=== PATIENT | female | born 1970 | race Caucasian/White ===

== ENCOUNTER 2022-10-25 07:32 | Emergency (ER) | payer BC, OTHER ==
[~2022-10-25] VITALS: Ht 162.6 cm; Wt 69.7 kg
[2022-10-25] MEDS ORDERED: fentaNYL INJ 100 MCG/2 ML AMP ONE (07:55)
[2022-10-25] MEDS ORDERED: KETOROLAC 30 MG/ML VIAL ONE (07:55)
[2022-10-25] MEDS ORDERED: KETOROLAC 30 MG/ML VIAL IVP STA (07:56)
[2022-10-25] MEDS ORDERED: ONDANSETRON 4 MG/2 ML (SDV) Z0FRAN IVP STA (07:56)
[2022-10-25] MEDS ORDERED: NS IV 1000 ML 1,000 ML IV STA (07:56)
[2022-10-25] MEDS ORDERED: ONDANSETRON 4 MG/2 ML (SDV) Z0FRAN ONE (07:56)
[2022-10-25] MEDS ORDERED: fentaNYL INJ 100 MCG/2 ML AMP IVP STA (07:56)
--- NOTE | 2022-10-25 08:04 | ED Abdominal Pain ---
General Chief Complaint: - Reproductive Stated Complaint: BACK PAIN Source of Information: Patient History of Present Illness Date Seen by Provider: Oct 25, 2022 Time Seen by Provider: 07:40 Initial Comments 51-year-old female presenting with complaints of right low back pain that started yesterday. She states that she thought maybe she had just pulled something in her back because she had lifted some cases of water. However overnight she had to get up to urinate several times and then around 5 this morning she got up and took her morning vitamins and shake. She states she was doing her morning chores and and had a bowel movement this morning. Then felt like she needed to go the bathroom again and when she went to the bathroom she had a small bowel movement and then had sudden severe pain wrapping around her right side. She did have vomiting with the pain. She had to lay down on the floor and called her using her watch to have him come help her and bring her to the emergency department. She denies having history of kidney stones but had looked online and thought that it might be a kidney stone. She states that she has had a hysterectomy and 2 C-sections but no other abdominal surgeries. She denies any pain or burning with urination. She had no fever, chills, cough, chest pain, shortness of breath. Timing/Duration: 12-24 Hours Severity/Quality: Severe (Initially was more mild but became severe this morning) Location: Flank (right) Radiation: Flank (right) Activities at Onset: None Modifying Factors: Worsens With Defecating, Worsens With Urinating Associated Symptoms: Back Pain (Right low back pain that started yesterday after lifting a case of water); No Chest Pain, No Diaphoresis, No Fever/Chills, No Fatigue, No Headache, No Heartburn; Nausea/Vomiting (With the pain this morning); No Rash, No Shortness of Air, No Swelling/Mass in Abdomen, No Syncope, No Weakness Allergies and Home Medications Allergies Coded Allergies: No Known Drug Allergies (Unverified , 10/25/22) Patient Home Medication List Home Medication List Reviewed: Yes Hydrocodone/Acetaminophen (Hydrocodone-Acetamin 5-325 mg) 5 Mg-325 Mg Tablet, 1 TAB PO Q6H PRN for PAIN-SEVERE (8-10) Prescribed by: MATTHEW NOYOLA on 10/25/22 0929 Ondansetron (Ondansetron Odt) 4 Mg Tab.rapdis, 4 MG PO Q6H PRN for NAUSEA/VOMITING Prescribed by: MATTHEW MORRISRT on 10/25/2228 Tamsulosin HCl (Flomax) 0.4 Mg Cap, 0.4 MG PO DAILY Prescribed by: MATTHEW Downs ENYART on 10/25/2228 Review of Systems Review of Systems Constitutional: No chills, No fever EENTM: No Symptoms Reported Respiratory: No Symptoms Reported Cardiovascular: No Symptoms Reported Gastrointestinal: See HPI Genitourinary: See HPI Musculoskeletal: see HPI Skin: no symptoms reported Psychiatric/Neurological: No Symptoms Reported Endocrine: No Symptoms Reported Past Jjezhdj-Kfonss-Ritdbt Hx Patient Social History Tobacco Use?: No Past Medical History Surgery/Hospitalization HX: Hysterectomy, x2 Surgeries: Yes Physical Exam Vital Signs Vital Signs - First Documented 10/25/22 07:45 Temp 36.1 Pulse 72 Resp 18 B/P (MAP) 109/77 (88) Pulse Ox 97 O2 Delivery Room Air Capillary Refill : Height/Weight/BMI Height: '" Weight: lbs. oz. kg; BMI Method: General Appearance: WD/WN, moderate distress (Patient is crying and holding her right side saying that it hurts) HEENT: PERRL/EOMI, pharynx normal Neck: non-tender, full range of motion, supple, normal inspection Respiratory: chest non-tender, lungs clear, normal breath sounds, no respiratory distress, no accessory muscle use Cardiovascular: normal peripheral pulses, regular rate, rhythm Gastrointestinal: normal bowel sounds, non tender, soft, no pulsatile mass Rectal: deferred Extremities: normal range of motion, non-tender, normal capillary refill Neurologic/Psychiatric: alert, oriented x 3 Skin: normal color, warm/dry Progress/Results/Core Measures Results/Orders Lab Results Laboratory Tests Test 10/25/22 07:45 10/25/22 08:05 Range/Units Urine Color YELLOW Urine Clarity CLEAR Urine pH 7.0 5-9 Urine Specific Sharon 1.020 1.016-1.022 Urine Protein NEGATIVE NEGATIVE Urine Glucose (UA) NEGATIVE NEGATIVE Urine Ketones 1+ H NEGATIVE Urine Nitrite NEGATIVE NEGATIVE Urine Bilirubin NEGATIVE NEGATIVE Urine Urobilinogen 0.2 < = 1.0 MG/DL Urine Leukocyte Esterase NEGATIVE NEGATIVE Urine RBC (Auto) 1+ H NEGATIVE Urine RBC 10-25 H /HPF Urine WBC NONE /HPF Urine Squamous Epithelial Cells 2-5 /HPF Urine Crystals NONE /LPF Urine Bacteria TRACE /HPF Urine Casts NONE /LPF Urine Mucus SMALL H /LPF Urine Culture Indicated NO White Blood Count 4.9 4.3-11.0 10^3/uL Red Blood Count 4.97 3.80-5.11 10^6/uL Hemoglobin 14.0 11.5-16.0 g/dL Hematocrit 42 35-52 % Mean Corpuscular Volume 85 80-99 fL Mean Corpuscular Hemoglobin 28 25-34 pg Mean Corpuscular Hemoglobin Concent 33 32-36 g/dL Red Cell Distribution Width 13.6 10.0-14.5 % Platelet Count 283 130-400 10^3/uL Mean Platelet Volume 10.7 9.0-12.2 fL Immature Granulocyte % (Auto) 0 % Neutrophils (%) (Auto) 54 42-75 % Lymphocytes (%) (Auto) 37 12-44 % Monocytes (%) (Auto) 8 0-12 % Eosinophils (%) (Auto) 1 0-10 % Basophils (%) (Auto) 1 0-10 % Neutrophils # (Auto) 2.7 1.8-7.8 10^3/uL Lymphocytes # (Auto) 1.8 1.0-4.0 10^3/uL Monocytes # (Auto) 0.4 0.0-1.0 10^3/uL Eosinophils # (Auto) 0.1 0.0-0.3 10^3/uL Basophils # (Auto) 0.0 0.0-0.1 10^3/uL Immature Granulocyte # (Auto) 0.0 0.0-0.1 10^3/uL Sodium Level 138 135-145 MMOL/L Potassium Level 3.9 3.6-5.0 MMOL/L Chloride Level 104 98-107 MMOL/L Carbon Dioxide Level 21 21-32 MMOL/L Anion Gap 13 5-14 MMOL/L Blood Urea Nitrogen 19 H 7-18 MG/DL Creatinine 0.62 0.60-1.30 MG/DL Estimat Glomerular Filtration Rate 107 BUN/Creatinine Ratio 31 Glucose Level 109 H 70-105 MG/DL Calcium Level 10.0 8.5-10.1 MG/DL Corrected Calcium 9.7 8.5-10.1 MG/DL Total Bilirubin 0.4 0.1-1.0 MG/DL Aspartate Amino Transf (AST/SGOT) 26 5-34 U/L Alanine Aminotransferase (ALT/SGPT) 17 0-55 U/L Alkaline Phosphatase 134 40-136 U/L Total Protein 7.5 6.4-8.2 GM/DL Albumin 4.4 3.2-4.5 GM/DL Lipase 50 8-78 U/L My Orders Orders - MATTHEW NOYOLA MD Comprehensive Metabolic Panel (10/25/22 07:56) Lipase (10/25/22 07:56) Ua Culture If Indicated (10/25/22 07:56) Ed Iv/Invasive Line Start (10/25/22 07:56) Cbc With Automated Diff (10/25/22 07:56) Ct Abdomen/Pelvis Wo (10/25/22 07:56) Ns Iv 1000 Ml (Sodium Chloride 0.9%) (10/25/22 07:56) Ondansetron Injection (Zofran Injectio (10/25/22 07:56) Ketorolac Injection (Toradol Injection) (10/25/22 07:56) Fentanyl Inj (Sublimaze Injection) (10/25/22 07:56) Fentanyl Inj (Sublimaze Injection) (10/25/22 07:55) Ketorolac Injection (Toradol Injection) (10/25/22 07:55) Ondansetron Injection (Zofran Injectio (10/25/22 07:56) Tamsulosin Capsule (Flomax Capsule) (10/25/22 09:10) Phenazopyridine Tablet (Pyridium Tablet) (10/25/22 09:10) Strain Urine (10/25/22 09:47) Vital Signs/I&O 10/25/22 10/25/22 07:45 10:19 Temp 36.1 Pulse 72 72 Resp 18 16 B/P (MAP) 109/77 (88) 115/81 Pulse Ox 97 97 O2 Delivery Room Air Room Air Progress Progress Note #1: Progress Note Potential diagnosis of appendicitis, kidney stone, renal colic, pyelonephritis, cystitis. Obtain peripheral IV access and order normal saline 1 L IV fluid bolus for hydration, Zofran 4 mg IV for nausea and vomiting, fentanyl 50 mcg IV for severe pain, ketorolac 30 mg IV for inflammation and possible renal colic. Send blood for complete blood count, comprehensive metabolic profile, lipase, urine to check for blood or signs of infection. Order CT scan of the abdomen and pelvis without IV contrast looking for signs of a kidney stone or inflammatory process or pyelonephritis. Progress Note #2: Time: 08:52 Progress Note Patient reports that the pain medicine was making her pain little more tolerable she just felt a lot of pressure like she had to urinate. She did not have elevated white blood cell count for signs of infection. She was not anemic with a hemoglobin of 14. Her comprehensive metabolic profile did not show any acute significant abnormality to account for her right flank pain. On my personal interpretation and review of her CT scan of abdomen and pelvis without IV contrast it looks like she had a 3 to 4 mm kidney stone causing some hydro ureter and hydronephrosis on the right side. The kidney stone appeared to be at the level of the UPJ. Progress Note #3: Time: 09:06 Progress Note I reviewed the radiologist report at 0906. They agreed that there is mild hydroureter on the right side and a 2 mm stone at the bladder. Appendix and other organs all appeared normal without acute findings. Waiting on urine from patient to check for signs of infection. Will try a dose of Flomax and pyridium to help with bladder spasms and pain. She now reports that her pain is 0 but she still has some pressure like she needs to urinate. Progress Note #4: Time: 10:10 Progress Note Urinalysis had 1+ ketones and red blood cells present consistent with the kidney stone. She did not exhibit signs of infection such as nitrates, leukocyte Estrace, bacteria, white blood cells. Will discharge on tamsulosin 0.4 mg p.o. daily x3 days to try and help with bladder spasms and urinary pain, Zofran 4 mg p.o. every 6 hours as needed nausea and vomiting, hydrocodone/acetaminophen 5/325 mg 1 p.o. every 6 hours as needed severe pain. Encourage fluids and give handout about diet changes for people with kidney stones. Encouraged to strain her urine until she sees the stone pass. Follow-up with primary care and if she has more problems she may need to be referred to a urologist. Diagnostic Imaging Diagonstic Imaging: CT Plain Films/CT/US/NM/MRI: abdomen, pelvis Comments NAME: [facility] REC#: [id number] PT STATUS: REG ER : 1970 PHYSICIAN: MATTHEW NOYOLA MD ADMIT DATE: 10/25/22/ER FS Draft Date of Exam:10/25/22 CT ABDOMEN/PELVIS WO EXAMINATION: CT abdomen and pelvis without contrast. TECHNIQUE: Multiple contiguous axial images were obtained through the abdomen and pelvis without the use of intravenous contrast. All CT scans use one or more of the following dose optimizing techniques: automated exposure control, MA and/or KvP adjustment based on patient size and exam type or iterative reconstruction. HISTORY: Flank pain COMPARISON: None available. FINDINGS: Limited views of the lower thorax are unremarkable. There is a small cyst at the gallbladder fossa of the liver. No suspicious renal lesion. There is a small segment two cyst. There is no biliary ductal dilation. Gallbladder is normal. Pancreas is normal. Spleen is normal. Adrenal glands are normal. There is a 1 mm stone in the left kidney. No suspicious renal lesion. There is a 2 mm stone at the ureteral orifice within the urinary bladder with mild dilation of the right ureter. There is no hydronephrosis. Bowel is normal in caliber without obstruction or inflammation. The appendix is normal. No free fluid or air. No abdominal or pelvic lymphadenopathy. Aorta is normal in caliber without aneurysm. There are no suspicious osseus lesions. IMPRESSION: 1. Bladder stone at the right ureteral orifice measuring 2 mm with mild dilation of the right ureter. The stone may be obstructing at the ureteral orifice or recently passed. Dictated on workstation # [id number] Dict: 10/25/2234 Trans: 10/25/22 0848 [facility] [id number] Interpreted by: PEDRO YOUSIF MD Electronically signed by: Reviewed: Reviewed by Me (I reviewed the radiologist report at 0906) Departure Impression Primary Impression: Renal colic on right side Additional Impressions: Acute right flank pain Calculus of distal right ureter Disposition: 01 HOME, SELF-CARE Condition: Stable Departure-Patient Inst. Decision time for Depature: 10:14 Referrals: NINO LOWE MD (PCP) Primary Care Physician Patient Instructions: Kidney Stone, Adult ED, How to Strain Your Urine, Kidney Stone Diet Add. Discharge Instructions: Continue stay well-hydrated and drink plenty water. Avoid drinking caffeinated and carbonated drinks as they could contribute to more stone forming. You could continue with the tamsulosin or Flomax once a day to help with bladder spasms and help the ureter relax. Strain your urine each time you go to urinate until you see the stone pass. It will look like a small grain of sand or small naina of pepper. If you have continued pain or more problems with kidney stones you may have to follow up with a Urologist, otherwise check back with your primary care provider as needed. All discharge instructions reviewed with patient and/or family. Voiced understanding. Scripts Hydrocodone/Acetaminophen (Hydrocodone-Acetamin 5-325 mg) 5 Mg-325 Mg Tablet 1 TAB PO Q6H PRN for PAIN-SEVERE (8-10) for 3 Days, #12 TAB 0 Refills Prov: MATTHEW NOYOLA MD 10/25/22 Ondansetron (Ondansetron Odt) 4 Mg Tab.rapdis 4 MG PO Q6H PRN for NAUSEA/VOMITING for 3 Days, #12 TAB 0 Refills Prov: MATTHEW NOYOLA MD 10/25/22 Tamsulosin HCl (Flomax) 0.4 Mg Cap 0.4 MG PO DAILY for renal colic for 3 Days, #3 CAP 0 Refills Prov: MATTHEW NOYOLA MD 10/25/22 MATTHEW NOYOLA MD Oct 25, 2022 08:04
[2022-10-25 08:12] LABS: BASOPHILS % (AUTO) 1 % (0-10); EOSINOPHILS # (AUTO) 0.1 10^3/uL (0.0-0.3); EOSINOPHILS % (AUTO) 1 % (0-10); HEMATOCRIT 42 % (35-52); LYMPHOCYTES # (AUTO) 1.8 10^3/uL (1.0-4.0); LYMPHOCYTES % (AUTO) 37 % (12-44); MEAN CORPUSCULAR HEMOGLOBIN 28 pg (25-34); MEAN CORPUSCULAR HGB CONC 33 g/dL (32-36); MEAN CORPUSCULAR VOLUME 85 fL (80-99); MEAN PLATELET VOLUME 10.7 fL (9.0-12.2); MONOCYTES # (AUTO) 0.4 10^3/uL (0.0-1.0); MONOCYTES % (AUTO) 8 % (0-12); NEUTROPHILS # (AUTO) 2.7 10^3/uL (1.8-7.8); NEUTROPHILS % (AUTO) 54 % (42-75); PLATELET COUNT 283 10^3/uL (130-400); WHITE BLOOD COUNT 4.9 10^3/uL (4.3-11.0)
[2022-10-25 08:32] LABS: ALBUMIN 4.4 GM/DL (3.2-4.5); BILIRUBIN,TOTAL 0.4 MG/DL (0.1-1.0); CREATININE SERUM 0.62 MG/DL (0.60-1.30); POTASSIUM 3.9 MMOL/L (3.6-5.0); TOTAL PROTEIN 7.5 GM/DL (6.4-8.2)
--- NOTE | 2022-10-25 08:48 | Diagnostic Imaging Report ---
EXAMINATION: CT abdomen and pelvis without contrast. TECHNIQUE: Multiple contiguous axial images were obtained through the abdomen and pelvis without the use of intravenous contrast. All CT scans use one or more of the following dose optimizing techniques: automated exposure control, MA and/or KvP adjustment based on patient size and exam type or iterative reconstruction. HISTORY: Flank pain COMPARISON: None available. FINDINGS: Limited views of the lower thorax are unremarkable. There is a small cyst at the gallbladder fossa of the liver. No suspicious renal lesion. There is a small segment two cyst. There is no biliary ductal dilation. Gallbladder is normal. Pancreas is normal. Spleen is normal. Adrenal glands are normal. There is a 1 mm stone in the left kidney. No suspicious renal lesion. There is a 2 mm stone at the ureteral orifice within the urinary bladder with mild dilation of the right ureter. There is no hydronephrosis. Bowel is normal in caliber without obstruction or inflammation. The appendix is normal. No free fluid or air. No abdominal or pelvic lymphadenopathy. Aorta is normal in caliber without aneurysm. There are no suspicious osseus lesions. IMPRESSION: 1. Bladder stone at the right ureteral orifice measuring 2 mm with mild dilation of the right ureter. The stone may be obstructing at the ureteral orifice or recently passed. Dictated by: Dictated on workstation # [id number]
[2022-10-25] MEDS ORDERED: PHENAZOPYRIDINE 100 MG (PYRIDIUM) TABLET PO STA (09:10)
[2022-10-25] MEDS ORDERED: TAMSULOSIN 0.4 MG (FLOMAX) CAP PO STA (09:10)
[2022-10-25] MEDS ORDERED: ACHD5005 PO (09:28)
[2022-10-25] MEDS ORDERED: ONDA4TAB11 PO (09:28)
[2022-10-25] MEDS ORDERED: TMSL.4C PO (09:28)
[2022-10-25 09:58] LABS: BILIRUBIN,URINE NEGATIVE (NEGATIVE); CLARITY,URINE CLEAR; COLOR,URINE YELLOW; GLUCOSE, URINE (UA) NEGATIVE (NEGATIVE); KETONES,URINE 1+ (NEGATIVE); LEUKOCYTE ESTERASE ,URINE NEGATIVE (NEGATIVE); NITRITE,URINE NEGATIVE (NEGATIVE); PROTEIN,URINE NEGATIVE (NEGATIVE)
[2022-10-25 10:08] LABS: BACTERIA,URINE TRACE /HPF
[2022-10-25 10:19] VITALS: BP 115/81
== END 2022-10-25 10:22 | disposition home or self-care (01) ==
LOC: EDUNIT# 07:32 → ER FS 07:33
DX: N20.2 Calculus of kidney with calculus of ureter (principal); Z28.310 Unvaccinated for COVID-19; X50.0XXA Overexertion from strenuous movement or load, initial encounter
CPT/HCPCS: 36415; 74176; 80053; 81000; 83690; 85025